=== PATIENT | male | born 1975 | race Caucasian/White ===

== ENCOUNTER 2019-06-20 14:57 | Emergency (ER) | payer MEDICARE, MEDICAID, SELFPAY ==
[2019-06-20 15:02] VITALS: BP 137/89; PULSE 80; RESP 16; TEMP 37.1; O2SAT 95
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
== END 2019-06-20 16:35 | disposition home or self-care (01) ==
LOC: ER 16:31
PROVIDERS: Emergency Provider Nurse Practitioner Family; PCP Internal Medicine
DX: H61.23 Impacted cerumen, bilateral (principal)
CPT/HCPCS: 69209; 99282

== ENCOUNTER 2019-11-29 12:55 | Emergency (ER) | payer MEDICARE, MEDICAID, SELFPAY ==
[2019-11-29 12:58] VITALS: BP 134/96; PULSE 69; RESP 16; TEMP 36.5; O2SAT 97
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
[2019-11-29] MEDS: Acetaminophen 500 MG TAB 1000 MG PO (13:49)
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
--- NOTE | 2019-11-29 14:54 | NUR.NOTE ---
Discharge instructions reviewed with pt and caregiver with verbal understanding. aware to f/u with pcp as needed. ambulated to exit with steady gait.
== END 2019-11-29 14:56 | disposition home or self-care (01) ==
PROVIDERS: Emergency Provider Physician Assistant; PCP Internal Medicine
DX: M25.512 Pain in left shoulder (principal); S40.012A Contusion of left shoulder, initial encounter; V43.53XA Car driver injured in collision with pick-up truck in traffic accident, initial encounter
CPT/HCPCS: 99283; 73000

== ENCOUNTER 2021-11-05 15:04 | Outpatient (REF) | payer MEDICARE, MEDICAID, SELFPAY ==
[2021-11-05 15:35] LABS: HCT 45.4 % (40.0-50.0); HGB 14.6 g/dL (13.5-17.5); MCH 29.5 pg (27.0-33.0); MCHC 32.2 % (32.0-36.0); MCV 91.7 fL (80-95); MPV 10.7 fL (8.0-11.0); Platelet Count 161 10^3/uL (130-400); RBC 4.95 10^6/uL (4.36-5.78); RDW 12.3 % (11.8-14.1); RDW-SD 41.4 fL; WBC 4.76 10^3/uL (4.4-10.8)
[2021-11-05 16:12] LABS: ALT 34 U/L (16-63); AST 18 U/L (15-37); Anion Gap 6.6 mmol/L (3-11); BUN 21 mg/dL (7-18); CO2 30.4 mmol/L (21.0-32.0); CREATININE 1.1 mg/dL (0.70-1.30); Calcium 8.8 mg/dL (8.5-10.1); Calculated LDL 105 mg/dL (<100); Chloride 106 mmol/L (98-107); Cholesterol 164 mg/dL (<200); Glucose 102 mg/dL (74-106); HDL Cholesterol 41 mg/dL (40-60); Potassium 4.6 mmol/L (3.5-5.1); Sodium 143 mmol/L (136-145); Triglyceride 93 mg/dL (<150)
== END 2021-11-05 15:05 | disposition home or self-care (01) ==
LOC: NCHCN 15:04
PROVIDERS: PCP Internal Medicine; Visit Provider Nurse Practitioner Family
DX: Z13.220 Encounter for screening for lipoid disorders (principal); Z00.00 Encounter for general adult medical examination without abnormal findings; Z51.81 Encounter for therapeutic drug level monitoring
CPT/HCPCS: 80048; 80061; 85027; 84450; 84460

== ENCOUNTER 2021-11-20 00:41 | Outpatient (CLI) | payer MEDICARE, MEDICAID, SELFPAY ==
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
== END 2021-11-20 01:01 ==
PROVIDERS: PCP Internal Medicine; Visit Provider Nurse Practitioner Family
DX: R93.89 Abnormal findings on diagnostic imaging of other specified body structures (principal); R10.31 Right lower quadrant pain; R59.0 Localized enlarged lymph nodes
CPT/HCPCS: 76857

== ENCOUNTER 2022-09-29 14:19 | Outpatient (CLI) | payer MEDICARE, MEDICAID, SELFPAY ==
--- OUTSIDE RECORDS SUMMARY | 2022-09-29 14:22 | XMS_ITS | Encounter Summary ---
:1975 Author Organization [facility] Address [address] [place] [address] Care Team Providers Name Role Phone Imani Jordan MD Primary Care Provider Encounter Details Date Type Department Care Team Description 09/07/2013 Hospital Encounter [facility] Anton Landaverde, Perioperative Services - DDS [address] [address] [place] [id number] Social History Tobacco Use Types Packs/Day Years Used Date Smoking Tobacco: Never Assessed Sex Assigned at Date Recorded Not on file documented as of this encounter Last Filed Vital Signs Vital Sign Reading Time Taken Comments Blood Pressure 128/77 09/07/2013 1415 EST Pulse - - Temperature 36.6 ??C (97.9 ??F) 09/07/2013 1415 EST Respiratory Rate 14 09/07/2013 1415 EST Oxygen Saturation 97% 09/07/2013 1415 EST Inhaled Oxygen Concentration - - Weight 79 kg (174 lb 2.6 oz) 09/05/2013 1523 EST Height 169.1 cm (5' 6.58) 09/05/2013 1523 EST Body Mass Index 27.63 09/05/2013 1523 EST documented in this encounter Discharge Instructions Discharge Instr - Anton Smyth DDS - 09/07/2013 13:19 EST DENTAL REHABILITATION POST-OP INSTRUCTIONS ACTIVITY - Quiet day today with limited physical activity. Balance and stability may be altered. - No restrictions on Day 2. ORAL HYGIENE - No brushing today. The teeth may be wiped with a gauze or washcloth for the first few days. - Brushing (2 times per day with fluoride toothpaste) may resume on Day 2. - Flossing is encouraged to begin on Day 3. DIET - Drink more fluids than usual today. - Soft foods that are easily chewed and swallowed are encouraged for today. After a day or two, no restrictions are necessary. - To reduce the risk of future cavities, healthy snack choices are critical. PAIN - Give acetaminophen on day one every 4-6 hours to manage mild discomfort. - Mild puffiness of the lips and cheeks may be noted. If tolerated, a cold compress may reduce swelling when applied periodically during the first 24 hours. - Apply Vaseline to dry lips as needed. NOTIFY YOUR DOCTOR IF YOU HAVE ANY OF THE FOLLOWING SYMPTOMS: - Fever greater than 100F (38C) - Uncontrolled bleeding - Persistent nausea or vomiting. - Pain unrelieved by pain medicine. POST-OP INSTRUCTIONS FOR EXTRACTIONS FOLLOWING PEDIATRIC DENTISTRY ORAL REHAB 1. No rinsing today. After 24 hours, salt water rinses may be used after meals using ?? tsp of salt to 8 oz. of water. 2. Take Tylenol every 4-6 hours for discomfort. 3. Some slight swelling may occur. A cold compress or ice pack may be held over the region of the extraction on intermittent periods today, if tolerated. 4. For today, a light diet with soft foods. No hot foods. 5. For today, do not use straws for drinking. 6. Bite on gauze or hold pressure over extraction site to stop any bleeding. 7. Please call your surgeon if you have any problems: [facility] [phone] ANTON LANDAVERDE DDS 09/07/13 13:19 documented in this encounter Medications at Time of Discharge Medication Sig Dispensed Refills Start Date End Date FLUoxetine (PROZAC) 20 mg Take 20 mg by mouth 0 tablet daily. LORazepam (ATIVAN) 1 mg Take 1 mg by mouth. 0 tablet Pre-procedure QUEtiapine (SEROQUEL) 100 Take 100 mg by mouth 0 mg tablet at bedtime. documented as of this encounter Discharge Disposition Disposition Code Departure Means Destination Home or Self Care documented in this encounter H&P Notes WILDLIFE FORENSIC GENETICIST, SCAN 2 - 09/12/2013 1256 EST Anton Landaverde DDS - 09/07/2013 1001 EST The preoperative history and physical which was performed within 30 days of this procedure has been reviewed and the clinically appropriate elements of the physical examination havebeen repeated. There are no changes to the documented history and physical or if so such changes aredocumented below ANTON LANDAVERDE DDS 09/07/2013 10:02 documented in this encounter Nursing Notes WILDLIFE FORENSIC GENETICIST, SCAN 2 - 09/12/2013 1256 EST documented in this encounter OR Notes OR PreOp - WILDLIFE FORENSIC GENETICIST, SCAN 2 - 09/12/2013 1256 EST OR Surgeon - Anton Landaverde DDS - 09/07/2013 2124 EST OPERATIVE REPORT SERVICE DATE: 09/07/2013 SURGEON: Anton Landaverde DDS PREOPERATIVE DIAGNOSIS: POSTOPERATIVE DIAGNOSIS: PROCEDURE: Complete dental rehabilitation. ANESTHESIA: Oxygen and sevoflurane. NARRATIVE: The patient was induced by mask with oxygen and sevoflurane and continued on that for theduration of the procedure. The following treatment is as follows: Three periapical x-rays were taken, a dental cleaning was completed and a fluoride treatment was completed. The following teeth and their surfaces treated are: Tooth #3 had a 1-surface resin mormonism, same with tooth #6 and same withtooth #14 and same with tooth #19. Tooth #15 received a 3-surface resin mormonism. Tooth #26 received a 3-surface resin mormonism and tooth #27 received a 3-surface resin mormonism. Teeth #2, 14 18, 30 and 31 were surgically extracted and the patient was given 3 x 4-0 chromic gut sutures. The patient was returned to the recovery betancourt in satisfactory condition with all packs removed and all bleeding controlled. Unless otherwise noted, there were no complications, no blood loss, no cultures obtained, no specimens removed, and no drains retained. Anton Landaverde DDS 04 22 PM / Anton Landaverde DDS cn Confirmation: [id number] Dictation ID: [id number] Anesthesia Procedure Notes - WILDLIFE FORENSIC GENETICIST, SCAN 2 - 09/07/2013 1322 EST OR PreOp - WILDLIFE FORENSIC GENETICIST, SCAN 2 - 09/07/2013 1317 EST Anesthesia Preprocedure Evaluation - WILDLIFE FORENSIC GENETICIST, SCAN 2 - 09/07/2013 1238 EST Anesthesia Preprocedure Evaluation - WILDLIFE FORENSIC GENETICIST, SCAN 2 - 09/07/2013 1012 EST documented in this encounter Miscellaneous Notes Coding Query - Anton Landaverde DDS - 09/13/2013 1325 EST In coding this procedure, I noticed that your procedure note said that you performed a 1 surface mormonism on tooth #14 and a little farther down the note, the indication is that you extracted tooth #14. Would you please clarify: What teeth #'s were extracted ____#13 What teeth #'s were restored #14 Jody David HIM Coding [phone] Anesthesia Post-Eval - Geovany Yañez - 09/07/2013 1432 EST Post Anesthesia Evaluation Note Date of Service: 09/07/2013 Patrick Guthrie, a 37 y.o. year old male has received General Anesthesia today. He has been evaluated,assessed and discharged from anesthesia care with stable cardiorespiratory function and alert mentalstatus. The last set of recorded vital signs and pain rating were reviewed: Temp: 36.6 ??C (97.9 ??F) (09/07/131414), Heart Rate: 92 BPM (09/07/131414), BP: 128/77 mmHg (09/07/131414), Resp: 14 (09/07/131414), SpO2: 97 % (09/07/131414),Numeric Pain Level (Scale 1-10): 0 Total: 0 Patrick Guthrie participated in this evaluation unless otherwise noted. His pain, nausea and vomiting have been managed and his body temperature and fluid balance have been restored. Additional monitoring and assessment needs have been addressed. If present, any postoperative events are documented below. GEOVANY YAÑEZ MD 09/07/2013 14:32 Brief Op Note - Anton Landaverde DDS - 09/07/2013 1318 EST Dental Rehabilitation Post op Note: Patrick Guthrie underwent an oral rehabilitation under general anesthesia for dental caries and acute situational anxiety. Underlying medical disorders include: developmental delays. 7 teeth were restored, and 5 teeth were extracted. Rectal Tylenol was administered for pain. Bleeding was minimal and controlled. Patient was extubated and sent to recovery in good condition. There were no complications, no packs, and no drains. Post-op instructions were reviewed with the parent / caregiver. Plan to discharge to home per anesthesia when PACU criteria are met. ANTON LANDAVERDE DDS 13:18 09/07/13 documented in this encounter Plan of Treatment Not on filedocumented as of this encounter Procedures Procedure Name Priority Date/Time Associated Diagnosis Comme nts ECG REPORT - 09/12/2013 12:56 SCANNED EST ORDERS - SCANNED 09/12/2013 12:56 EST GLUCOSE, SERUM Routine 09/07/2013 10:12 Results f or this EST procedure are i n the results section. LIPID PROFILE Routine 09/07/2013 10:12 Results fo r this (INCLUDES EST procedure are i n CHOLESTEROL, the results TRIGLYCERIDES, HDL, section. LDL) documented in this encounter Results ECG REPORT - SCANNED (09/12/2013 12:56 EST) Specimen (Source) Anatomical Collection Method Collection Time Re ceived Time Location / / Volume Laterality 09/12/2013 12:56 EST Narrative This result has an attachment that is no t available. Scan 2 Soldering Technician PROCEDURE/MINOR SURGICAL ORD ERABLES ORDERS - SCANNED (09/12/2013 12:56 EST) Specimen (Source) Anatomical Collection Method Collection Time Re ceived Time Location / / Volume Laterality 09/12/2013 12:56 EST Narrative This result has an attachment that is no t available. Scan 2 Soldering Technician ADMISSION ORDERABLES LIPID PROFILE (INCLUDES CHOLESTEROL, TRIGLYCERIDES, HDL, LDL) (09/07/2013 10:12 EST) P athologist Signature Cholesterol 287 mg/dl [facility] Comment: Desirable:<200 Borderline High:200-239 High:>zw=819 Triglycerides 249 mg/dl [facility] Comment: Normal:<150 Borderline High:150-199 High:200-499 Very High:>dx=285 HDL 36 mg/dl [facility] Comment: Low:<40 Normal:40-60 Desirable: >60 LDL, Calculated 201 mg/dl [facility] Comment: Optimal:<100 Near Optimal:100-129 Borderline High:130-159 High:160-189 Very High:>ox=580 Chol/HDL Ratio 8.0 [facility] Fasting? Unknown [facility] Non HDL Cholesterol 251 mg/dl [facility] Comment: Desirable:<130 Borderline:130-159 High: 160-189 Very High: >ym=810 Specimen Anatomical Collection Method Collection Time Receive d Time (Source) Location / / Volume Laterality 09/07/2013 10:12 09/07/2013 EST 13:41 EST Anton Patrick Main DDS CHEMISTRY & BLOOD GAS ORDERA BLES Performing Organization Address City/State/ZIP Code Phon e Number [facility] [address] [place] [address] SERVICES [facility] [address] [place] [address] (ABNORMAL) GLUCOSE, SERUM (09/07/2013 10:12 EST) P athologist Signature Glucose, Serum 105 (H) 70 - 100 [facility] mg/dl [facility] Specimen Anatomical Collection Method Collection Time Receive d Time (Source) Location / / Volume Laterality Blood specimen 09/07/2013 10:12 3 (specimen) EST 13:41 EST Anton Landaverde DDS CHEMISTRY & BLOOD GAS ORDERA BLES Performing Organization Address City/State/ZIP Code Phon e Number [facility] [address] [place] [address] SERVICES [facility] [address] [place] [address] documented in this encounter Visit Diagnoses Not on filedocumented in this encounter Administered Medications Inactive Administered Medications - up to 3 most recent administrations Medication Order MAR Action Action Date Dose Rate Site lactated ringers (LR) Rate Documented 09/07/2013 13:21 EST 25 mL/hr infusion at 25 mL/hr, intravenous, CONTINUOUS, Starting on Tue09/07/13 at 0845, Until Tue09/07/13 at 1647, Routine, Pre Op Day of Surgery ondansetron (PF) (ZOFRAN) injection 2 mg Given 09/07/2013 13:45 EST 2 mg 2 mg, intravenous, PRN, 1 dose, Starting on Tue09/07/13 at 1304, Until Tue09/07/13 at 1345, Nausea, Vomiting, Routine, Recovery (only) documented in this encounter Historical Medications This list may reflect changes made after this encounter. Medication Sig Dispensed Refills Start Date End Date LORazepam (ATIVAN) 1 mg Take 1 mg by mouth. 0 tablet Pre-procedure FLUoxetine (PROZAC) 20 mg Take 20 mg by mouth 0 tablet daily. QUEtiapine (SEROQUEL) 100 Take 100 mg by mouth 0 mg tablet at bedtime. added in this encounter Active and Recently Administered Medications Times are shown in EST. Continuous Medication Order 09/05/2013 09/06/2013 09/07/2013 lactated ringers (LR) infusion (CANCELED) 0845 (Due)1321 (Rate Documented - Provider: Sharon Rush, RN) at 25 mL/hr, intravenous, CONTINUOUS, St arting Tue09/07/13 at 0845, Until Tue09/07/13 at 1647, Routine PRN Medication Order 09/05/2013 09/06/2013 09/07/2013 ondansetron (PF) (ZOFRAN) injection 2 mg (COMPLETED) 1345 (Given - Provider: Sharon Rush, EDENILSON) 2 mg, intravenous, PRN, 1 dose, Starting Tue09/07/13 at 1304, Until Discontinued, Nausea, Vomiting, Routine documented in this encounter Orders Medications Ordered That Might Not Have Count Last Ord ered Date First Ordered Date Been Administered atropine 0.1 mg/mL syringe 0.4 mg 1 09/07/2013 diphenhydrAMINE (BENADRYL) injection 6.25 1 2012 mg fentaNYL citrate (PF) 50 mcg/mL injection 1 2012 25-100 mcg nalOXone (NARCAN) injection 0.2 mg 1 09/07/2013 Transfer Count Last Ordered Date First Ordered Date NOTIFY PPS PACU PATIENT DISCHARGE 1 09/07/2013 documented in this encounter Care Teams Firefighter Marine Relationship Specialty Start Date End Date Imani Jordan MD PCP - General 04/24/13 [address] [place] [address] documented as of this encounter
--- OUTSIDE RECORDS SUMMARY | 2022-09-29 14:22 | XMS_ITS | Clinical Summary ---
:1975 Author Organization [facility] Address [address] [place] [address] Care Team Providers Name Role Phone Imani Jordan MD Primary Care Provider Allergies No known active allergies Medications Medication Sig Dispensed Refills Start Date End Date Status QUEtiapine (SEROQUEL) Take 100 mg by 0 Active 100 mg tablet mouth at bedtime. FLUoxetine (PROZAC) 20 Take 20 mg by 0 Active mg tablet mouth daily. LORazepam (ATIVAN) 1 mg Take 1 mg by 0 Active tablet mouth. Pre-procedure Immunizations Name Administration Dates Next Due Tdap (BOOSTRIX) Vaccine =>7YO IM 09/07/2013 Social History Tobacco Use Types Packs/Day Years Used Date Smoking Tobacco: Never Assessed Sex Assigned at Date Recorded Not on file Last Filed Vital Signs Vital Sign Reading [...] Body Mass Index 27.63 09/05/2013 1523 EST Plan of Treatment Health Maintenance Due Date Last Done Comments Hepatitis C Screen 1975 COVID-19 Vaccine (#1) 06[birth year]06/1974 Care Teams Public Policy Manager Relationship Specialty Start Date End Date Imani Jordan MD PCP - General 04/24/13 [address] [place] [id number] (work)
[2022-09-29 16:19] LABS: Abs Immature Grans 0.02 10^3/uL (0.0-0.06); Absolute Basophil Count 0.04 10^3/uL (0.0-0.2); Absolute Eosinophil Count 0.08 10^3/uL (0.0-0.7); Absolute Lymphocyte Count 1.96 10^3/uL (1.2-3.4); Absolute Monocyte Count 0.61 10^3/uL (0.1-0.8); Absolute Neutrophil Count 3.59 10^3/uL (1.2-6.7); Basophils % 0.6; Eosinophils % 1.3; HCT 41.7 % (40.0-50.0); HGB 13.9 g/dL (13.5-17.5); Immature Grans % 0.3; Lymphocytes % 31.1; MCH 29.8 pg (27.0-33.0); MCHC 33.3 % (32.0-36.0); MCV 89 fL (80-95); MPV 9.9 fL (8.0-11.0); Monocytes % 9.7; Platelet Count 172 10^3/uL (130-400); RBC 4.67 10^6/uL (4.36-5.78); RDW 12.4 % (11.8-14.1); RDW-SD 40.5 fL
[2022-09-29 16:54] LABS: ALT 40 U/L (16-63); AST 28 U/L (15-37); Albumin 3.8 g/dL (3.4-5.0); Alkaline Phosphatase 82 U/L (46-116); Anion Gap 4.3 mmol/L (3-11); BUN 21 mg/dL (7-18); Bilirubin, Total 0.6 mg/dL (0.2-1.0); CO2 29.7 mmol/L (21.0-32.0); CREATININE 1.4 mg/dL (0.70-1.30); Calcium 9.5 mg/dL (8.5-10.1); Chloride 103 mmol/L (98-107); Glucose 83 mg/dL (74-106); Potassium 3.7 mmol/L (3.5-5.1); Sodium 137 mmol/L (136-145)
== END 2022-09-29 14:20 | disposition home or self-care (01) ==
PROVIDERS: PCP Internal Medicine; Visit Provider Nurse Practitioner Family
DX: R30.0 Dysuria (principal); R31.9 Hematuria, unspecified; R10.817 Generalized abdominal tenderness
CPT/HCPCS: 36415; 80053; 85025

== ENCOUNTER 2022-09-29 17:14 | Outpatient (REF) | payer MEDICARE, MEDICAID, SELFPAY ==
[2022-09-29 21:07] LABS: Bilirubin Negative (Negative); Blood Trace-lysed (Negative); Clarity Clear (Clear); Glucose Negative (Negative); Ketones Negative (Negative); Leukocyte Esterase Negative (Negative); Nitrite Negative (Negative); Specific Gravity 1.015 (1.005-1.025); Urobilinogen 0.2 EU/dL (Up TO 0.2); pH 5.5 (5-8)
[2022-09-29 21:21] LABS: Bacteria Rare HPF (Negative); C & S Indicated? No; Crystals Negative HPF (Negative); Epithelial Cells Rare HPF (Negative); Mucus Negative (Negative); RBC 0-2 HPF (0-2); WBC Negative HPF (0-5)
== END 2022-09-29 17:15 | disposition home or self-care (01) ==
LOC: LBN 17:14
PROVIDERS: PCP Internal Medicine; Visit Provider Nurse Practitioner Family
DX: R39.89 Other symptoms and signs involving the genitourinary system (principal); R31.9 Hematuria, unspecified; R30.0 Dysuria
CPT/HCPCS: 81003; 81015

== ENCOUNTER → 2022-10-04 02:52 | Outpatient (CLI) | payer MEDICARE, MEDICAID, SELFPAY ==
--- NOTE | 2022-10-04 07:30 | DI.US_ITS ---
Exam(s) US RENAL EXAM: US RENAL CLINICAL HISTORY: evaluate pathology,hematuria,r31.9. TECHNIQUE: Michaels scale, color and spectral Doppler were used. COMPARISON: CT ABD PELVIS WO CONTRAST from 08/12/2017 FINDINGS: Renal size in cm: Right: 10 left: 10.6 Echogenicity: Normal Hydronephrosis: Symmetric mild bilateral. Cyst or mass: No Nephrolithiasis: Question of a 6 millimeter stone lower pole left kidney. Bladder:Diffuse wall thickening, 6-7 millimeters in thickness. No bladder calculi or masses are seen .. Both ureteral jets were visualized. Prevoid vol:206 Postvoid vol:Patient unable to void. Prostate volume 42 cc. IMPRESSION: Question a 6 millimeter stone at the lower pole of the left kidney. Diffuse bladder wall thickening. Mildly enlarged prostate. Mild bilateral hydronephrosis. DATA REPOSITORY:
== END ==
PROVIDERS: PCP Internal Medicine; Visit Provider Nurse Practitioner Family
DX: R31.9 Hematuria, unspecified (principal); N20.0 Calculus of kidney; N32.89 Other specified disorders of bladder; N40.1 Benign prostatic hyperplasia with lower urinary tract symptoms; N13.30 Unspecified hydronephrosis
CPT/HCPCS: 76770

== ENCOUNTER → 2022-12-20 09:09 | Outpatient (BNVA) | payer MEDICARE, MEDICAID, SELFPAY | PROVIDERS: PCP Internal Medicine; Referring Provider Internal Medicine; Visit Provider Nurse Practitioner Gerontology | DX: N20.0 Calculus of kidney (principal); N13.30 Unspecified hydronephrosis; N40.1 Benign prostatic hyperplasia with lower urinary tract symptoms; R33.9 Retention of urine, unspecified | CPT/HCPCS: 51798; 99204 ==

== ENCOUNTER 2022-12-31 01:44 | Outpatient (CLI) | payer MEDICARE, MEDICAID, SELFPAY ==
[2022-12-31 21:15] LABS: ALT 37 U/L (16-63); AST 23 U/L (15-37); Albumin 4.4 g/dL (3.4-5.0); Alkaline Phosphatase 100 U/L (46-116); Anion Gap 11.9 mmol/L (3-11); BUN 23 mg/dL (7-18); Bilirubin, Total 0.5 mg/dL (0.2-1.0); CO2 25.1 mmol/L (21.0-32.0); CREATININE 1.2 mg/dL (0.70-1.30); Calcium 9.2 mg/dL (8.5-10.1); Calculated LDL 147 mg/dL (<100); Chloride 103 mmol/L (98-107); Cholesterol 222 mg/dL (<200); Estimated GFR 74.13 (mL/min/1.73m2); Glucose 94 mg/dL (74-106); HDL Cholesterol 57 mg/dL (40-60); Potassium 4.3 mmol/L (3.5-5.1); Sodium 140 mmol/L (136-145); Total Protein 7.4 g/dL (6.4-8.2); Triglyceride 94 mg/dL (<150)
[2023-01-03 09:25] LABS: PSA, Screening 0.4 ng/mL (<=2.5)
== END 2022-12-31 01:45 | disposition home or self-care (01) ==
LOC: LBO 01:45
PROVIDERS: Nurse Practitioner Family; PCP Internal Medicine; Visit Provider Nurse Practitioner Gerontology
DX: N40.1 Benign prostatic hyperplasia with lower urinary tract symptoms (principal); E78.00 Pure hypercholesterolemia, unspecified; R73.09 Other abnormal glucose; Z79.899 Other long term (current) drug therapy; Z12.5 Encounter for screening for malignant neoplasm of prostate
CPT/HCPCS: 36415; 80053; 80061; 84153; 83036

== ENCOUNTER → 2023-03-23 11:22 | Outpatient (BNVA) | payer MEDICARE, MEDICAID, SELFPAY | PROVIDERS: PCP Internal Medicine; Referring Provider Internal Medicine; Visit Provider Nurse Practitioner Gerontology | DX: N40.1 Benign prostatic hyperplasia with lower urinary tract symptoms (principal); N13.30 Unspecified hydronephrosis; R39.89 Other symptoms and signs involving the genitourinary system | CPT/HCPCS: 51798; 99214 ==

== ENCOUNTER 2023-06-03 00:15 | Outpatient (CLI) | payer MEDICARE, SELFPAY ==
--- NOTE | 2023-06-03 08:15 | DI.US_ITS ---
Exam(s) US RENAL EXAM: US RENAL CLINICAL HISTORY: monitoring b/l hydro and renal calculi, KIDNEY STONE, N13.30, N20.0. TECHNIQUE: Michaels scale, color and spectral Doppler were used. COMPARISON: CT ABD PELVIS WO CONTRAST from 08/12/2017 US US RENAL from 10/04/2022 FINDINGS: Renal size in cm: Right: 10.8 x 4.5 x 5.2 left: 10.4 x 4.1 x 5.9 Echogenicity: Normal Hydronephrosis: [id number] hydronephrosis, more prominent when compared with the previous exam. Cyst or mass: No Nephrolithiasis: 6 millimeter echogenic focus mid left kidney. 3 millimeter echogenic focus lower po le right kidney likely nonobstructing stones. Bladder:Normal Prevoid vol:577 Postvoid vol: 36 Prostate volume 44 cc. IMPRESSION: Hhyb-ht-[id number] bilateral hydronephrosis. Small bilateral nonobstructing renal calculi. DATA REPOSITORY:
== END 2023-06-03 00:35 ==
LOC: DI 00:15
PROVIDERS: PCP Internal Medicine; Visit Provider Nurse Practitioner Gerontology
DX: N13.30 Unspecified hydronephrosis (principal); N20.0 Calculus of kidney
CPT/HCPCS: 76770

== ENCOUNTER → 2023-07-06 02:15 | Outpatient (CLI) | payer MEDICARE, MEDICAID, SELFPAY ==
--- NOTE | 2023-07-06 08:00 | DI.NM_ITS ---
Exam(s) NM DTPA RENOGRAM W LASIX CLINICAL HISTORY: b/l hydroNEPHROSIS INCREASING,N13.30. COMPARISON: No exams were available for comparison EXAMINATION: Dose: 11 mCi Tc-99m DTPA Images: Immediately for 1 minute followed by dynamic for 45 minutes. Twentymg Lasix was administered after peak uptake in the renal cortex at approximately 12 min. FINDINGS: Time to peak: Right: 5 min (< 5 min normal) Left: 8 min (< 5 min normal) Curve Appearance: Right: T1/2 (Lasix to half-Lasix) 13.1 min Left: T1/2 (Lasix to half-Lasix) 12.5 min The time activity curve reveals no delay in the washout of either collecting system. (< 10 min normal, 10-15 min Low grade obstruction, 15-20 min moderate,. 20 min high grade) Split renal function: Right: 52 % Left: 48 % IMPRESSION: 1. Dilated, non-obstructed collecting system.
[2023-07-06] MEDS: Furosemide 20 MG/2 ML VIAL IJ (13:55)
== END ==
PROVIDERS: PCP Internal Medicine; Visit Provider Nurse Practitioner Gerontology
DX: N13.30 Unspecified hydronephrosis (principal)
CPT/HCPCS: 78708; J1941

== ENCOUNTER → 2023-09-21 11:29 | Outpatient (BNVA) | payer MEDICARE, MEDICAID, SELFPAY | PROVIDERS: PCP Internal Medicine; Visit Provider Nurse Practitioner Gerontology | DX: N13.30 Unspecified hydronephrosis (principal); N20.0 Calculus of kidney | CPT/HCPCS: 51798; 99213 ==

== ENCOUNTER 2024-03-13 05:17 | Outpatient (CLI) | payer MEDICARE, MEDICAID, SELFPAY ==
[2024-03-13 12:14] LABS: HCT 45.3 % (40.0-50.0); HGB 14.6 g/dL (13.5-17.5); MCH 29.7 pg (27.0-33.0); MCHC 32.2 % (32.0-36.0); MCV 92 fL (80-95); MPV 10.4 fL (8.0-11.0); Platelet Count 184 10^3/uL (130-400); RBC 4.91 10^6/uL (4.36-5.78); RDW-SD 44.2 fL; WBC 5.49 10^3/uL (4.4-10.8)
[2024-03-13 12:35] LABS: ALT 35 U/L (16-63); AST 22 U/L (15-37); Alkaline Phosphatase 99 U/L (46-116); Anion Gap 8.6 mmol/L (3-11); BUN 22 mg/dL (7-18); Bilirubin, Total 0.4 mg/dL (0.2-1.0); CO2 28.4 mmol/L (21.0-32.0); CREATININE 1.3 mg/dL (0.70-1.30); Calcium 9.2 mg/dL (8.5-10.1); Calculated LDL 132 mg/dL (<100); Chloride 108 mmol/L (98-107); Cholesterol 224 mg/dL (<200); Estimated GFR 66.93 (mL/min/1.73m2); Glucose 103 mg/dL (74-106); HDL Cholesterol 53 mg/dL (40-60); Potassium 4.4 mmol/L (3.5-5.1); Sodium 145 mmol/L (136-145); Total Protein 7.4 g/dL (6.4-8.2); Triglyceride 196 mg/dL (<150)
== END 2024-03-13 05:18 | disposition home or self-care (01) ==
LOC: LOS 05:17
PROVIDERS: PCP Internal Medicine; Visit Provider Nurse Practitioner Family
DX: Z00.00 Encounter for general adult medical examination without abnormal findings (principal)
CPT/HCPCS: 36415; 80053; 80061; 85027

== ENCOUNTER → 2024-04-03 09:31 | Outpatient (BNVA) | payer MEDICARE, MEDICAID, SELFPAY | PROVIDERS: PCP Internal Medicine; Visit Provider Nurse Practitioner Gerontology | DX: N20.0 Calculus of kidney (principal); N13.30 Unspecified hydronephrosis | CPT/HCPCS: 51798; 99213 ==

== ENCOUNTER 2024-09-14 00:28 | Outpatient (CLI) | payer MEDICARE, MEDICAID, SELFPAY ==
--- OUTSIDE RECORDS SUMMARY | 2024-09-14 00:32 | XMS_ITS | Encounter Summary ---
Author Organization [facility] Address [address] [place] [address] Care Team Providers Care Supervisor Rework Name Role Phone Unavailable Primary Care Provider Unavailabl e Encounter Details Date Type Department Care Team (Latest Contact Info) Description 09/07/2013 7:52 EST - 09/07/2013 14:35 EST Hospital Encounter [facility] Perioperative Services - [address] [id number] Anton Landaverde DDS [address] [place] [address] Discharge Disposition: Home or Self Care Social History Tobacco Use Types Packs/Day Years Used Date Smoking Tobacco: Never Assessed Sex and Gender Information Value Date Recorded Sex Assigned at Not on file Legal Sex Male 17:32 EST Gender Identity Not on file Sexual Orientation Not on file documented as of this [...] EST documented in this encounter Discharge Instructions * Discharge Instr - Activity* Anton Landaverde DDS - 09/07/2013 13:19 EST DENTAL REHABILITATION [...] used after meals using ?? tsp of saltto 8 oz. of water. 2. Take Tylenol [...] your surgeon if you have any problems: [facility] [phone] ANTON LANDAVERDE DDS 09/07/13 13:19 documented in this encounter Medications at Time of Discharge FLUoxetine (PROZAC) 20 mg tablet Take 20 mg by mouth daily. LORazepam (ATIVAN) 1 mg tablet Take 1 mg by mouth. Pre-procedur e QUEtiapine (SEROQUEL) 100 mg tablet Take 100 mg by mouth at bedtime. documented as of this encounter Discharge Disposition Disposition Code Departure Means Destination Home or Self Care documented in this encounter H&P Notes * VALVE MAKER, SCAN 2 - 09/12/2013 1256 EST * Anton Landaverde DDS - 09/07/2013 1001 EST The preoperative history and physical which was performed within 30 days of this procedure has been reviewed and the clinically appropriate elements of the physical examination have been repeated. There are no changes to the documented history and physical or if so such changes are documented below ANTON LANDAVERDE DDS 09/07/2013 10:02 documented in this encounter Nursing Notes * VALVE MAKER, SCAN 2 - 09/12/2013 1256 EST documented in this encounter OR Notes * OR PreOp - VALVE MAKER, SCAN 2 - 09/12/2013 1256 EST * OR Surgeon - Anton Landaverde DDS - 09/07/2013 2124 EST OPERATIVE REPORT SERVICE DATE: 09/07/2013 SURGEON: Anton Landaverde DDS PREOPERATIVE DIAGNOSIS: POSTOPERATIVE DIAGNOSIS: PROCEDURE: Complete dental rehabilitation. ANESTHESIA: Oxygen and sevoflurane. NARRATIVE: The patient was induced by mask with oxygen and sevoflurane and continued on that for the duration of the procedure. The following treatment is as follows: Three periapical x-rays were taken, a dental cleaning was completed and a fluoride treatment was completed. The following teeth and their surfaces treated are: Tooth #3 had a 1-surface resin scientologist, same with tooth #6 and same with tooth #14 and same with tooth #19. Tooth #15 received a 3-surface resin scientologist. Tooth #26 received a 3-surface resin scientologist and tooth #27 received a 3-surface resin scientologist. Teeth #2, 14 18, 30 and 31 were surgically extracted and the patient was given 3 x 4-0 chromic gut sutures.The patient was returned to the recovery betancourt in satisfactory condition with all packs removed and all bleeding controlled. Unless otherwise noted, there were no complications, no blood loss, no cultures obtained, no specimens removed, and no drains retained. Anton Landaverde DDS 04 22 PM / Anton Landaverde DDS cn Confirmation: [id number] Dictation ID: [id number] * Anesthesia Procedure Notes - VALVE MAKER, SCAN 2 - 09/07/2013 1322 EST * OR PreOp - VALVE MAKER, SCAN 2 - 09/07/2013 1317 EST * Anesthesia Preprocedure Evaluation - VALVE MAKER, SCAN 2 - 09/07/2013 1238 EST * Anesthesia Preprocedure Evaluation - VALVE MAKER, SCAN 2 - 09/07/2013 1012 EST documented in this encounter Miscellaneous Notes * Coding Query - Anton Landaverde DDS - 09/13/2013 1325 EST In coding this procedure, I noticed that your procedure note said that you performed a 1 surface scientologist on tooth #14 and a little farther down the note, the indication is that you extracted tooth #14. Would you please clarify: What teeth #'s were extracted ____#13 What teeth #'s were restored #14 Frankie, Jody Velasquez HIM Coding [phone] * Anesthesia Post-Eval - Geovany Yañez - 09/07/2013 1432 EST Post Anesthesia Evaluation Note Date of Service: 09/07/2013 Patrick Guthrie, a 37 y.o. year old male has received General Anesthesia today. He has been evaluated, assessed and discharged from anesthesia care with stable cardiorespiratory function and alert mental status. The last set of recorded vital signs and pain rating were reviewed: Temp: 36.6 ??C (97.9 ??F) (09/07/13 141), Heart Rate: 92 BPM (09/07/131414), BP: 128/77 mmHg (09/07/13 141), Resp: 14 (09/07/131414), SpO2: 97 % (09/07/131414),Numeric Pain Level (Scale 1-10): 0 Total: 0 Patrick Guthrie participated in this evaluation unless otherwise noted. His pain, nausea and vomitinghave been managed and his body temperature and fluid balance have been restored. Additional monitoring and assessment needs have been addressed. If present, any postoperative events are documented below. GEOVANY YAÑEZ MD 09/07/2013 14:32 * Brief Op Note - Anton Landaverde DDS - 09/07/2013 1318 EST Dental Rehabilitation Post op Note: Patrick Guthrie underwent an oral rehabilitation under general anesthesia for dental caries and acutesituational anxiety. Underlying medical disorders include: developmental delays. 7 teeth were restored, and 5 teeth were extracted. Rectal Tylenol was administered for pain. Bleeding was minimal and c ontrolled. Patient was extubated and sent to recovery in good condition. There were no complications, no packs, and no drains. Post-op instructions were reviewed with the parent / caregiver. Plan to discharge to home per anesthesia when PACU criteria are met. ANTON LANDAVERDE DDS 13:18 09/07/13 documented in this encounter Plan of Treatment Not on file documented as of this encounter Procedures Procedure Name Priority Date/Time Associated Diagnosis Comments ECG REPORT - SCANNED 09/12/2013 12:56 EST ORDERS - SCANNED 09/12/2013 12:5 6 EST GLUCOSE, SERUM Routine 09/07/2013 10:12 EST LIPID PROFILE (INCLUDES CHOLESTEROL, TRIGLYCERIDES, HDL, LDL) Routine 09/07/2013 10:12 EST documented in this encounter Results * ECG REPORT - SCANNED (09/12/2013 12:56 EST) 09/12/2013 12:5 6 EST us Scan 2 Nurse Esthetician PROCEDURE/MINOR SURGICAL OR DERABLES Final Result * ORDERS - SCANNED (09/12/2013 12:56 EST) 09/12/2013 12:5 6 EST us Scan 2 Nurse Esthetician ADMISSION ORDERABLES Final Result * LIPID PROFILE (INCLUDES CHOLESTEROL, TRIGLYCERIDES, HDL, LDL) (09/07/2013 10:12 EST) Cholesterol 287 mg/dl [facility] Comment: Desirable:<200 Borderline High:200-239 High:>yv=734 Triglycerides 249 mg/dl [facility] Comment: Normal:<150 Borderline High:150-199 High:200-499 Very High:>pn=502 HDL 36 mg/dl [facility] Comment: Low:<40 Normal:40-60 Desirable: >60 LDL, Calculated 201 mg/dl [facility] Comment: Optimal:<100 Near Optimal:100-129 Borderline High:130-159 High:160-189 Very High:>ph=869 Chol/HDL Ratio 8.0 [facility] Fasting? Unknown [facility] Non HDL Cholesterol 251 mg/dl [facility] Comment: Desirable:<130 Borderline:130-159 High: 160-189 Very High: >vq=906 09/07/2013 10:1 2 EST 09/07/2013 13:41 EST Anton Landaverde S CHEMISTRY & BLOOD GAS ORDER IRMA Final Result Performing Organization Address [facility] de Phone Number [facility] [address] [place] [address] * (ABNORMAL) GLUCOSE, SERUM (09/07/2013 10:12 EST) Glucose, Serum 105(H) 70 - 100 mg/dl [facility] Blood specimen (specimen) 09/07/2013 10:12 EST 09/07/2013 13:41 EST [facility] B[facility] IRMA Final Result Performing Organization Address [facility] Phone Number [facility] [address] [place] [address] documented in this encounter Visit Diagnoses Not on filedocumented in this encounter Administered Medications Inactive Administered Medications - up to 3 most recent administrations Medication Order MAR Action Action Date Dose Rate Site lactated ringers (LR) infusion at 25 mL/hr, intravenous, CONTINUOUS, Starting on Tue09/07/13 at 0845, Until Tue09/07/13 at 1647, Routine, Pre Op Day of Surgery Rate Documented 09/07/2013 13:21 EST 25 mL/hr ondansetron (PF) (ZOFRAN) injection 2 mg 2 mg, intravenous, PRN, 1 dose, Starting on Tue09/07/13 at 1304, Until Tue09/07/13 at 1345, Nausea, Vomiting, Routine, Recovery (only) Given 09/07/2013 13:45 EST 2 mg documented in this encounter Historical Medications * This list may reflect changes made after this encounter. LORazepam (ATIVAN) 1 mg tablet Take 1 mg by mouth. Pre-procedur e FLUoxetine (PROZAC) 20 mg tablet Take 20 mg by mouth daily. QUEtiapine (SEROQUEL) 100 mg tablet Take 100 mg by mouth at bedtime. added in this encounter Active and Recently Administered Medications Times are shown in EST. Continuous Medication Order 09/05/2013 09/06/2013 09/07/2013 lactated ringers (LR) infusion (CANCELED) at 25 mL/hr, intravenous, CONTINUOUS, Starting on Tue09/07/13 at 0845, Until Tue09/07/13 at 1647, Routine, Pre Op Day of Surgery 0845 (Due)1321 (Rate Documented - Provider: Sharon Rush RN) PRN Medication Order 09/05/2013 09/06/2013 09/07/2013 ondansetron (PF) (ZOFRAN) injection 2 mg (COMPLETED) 2 mg, intravenous, PRN, 1 dose, Starting on Tue09/07/13 at 1304, Until Tue09/07/13 at 1345, Nausea, Vomiting, Routine, Recovery (only) 1345 (Given - Provid er: Sharon Rush RN) documented in this encounter Orders Medications Ordered That Justen ht Not Have Been Administered Count Last Ordered Date First Ordered Date atropine 0.1 mg/mL syringe 0.4 mg 1 013 diphenhydrAMINE (BENADRYL) i njection 6.25 mg 1 09/07/2013 fentaNYL citrate (PF) 50 mcg /mL injection 25-100 mcg 1 09/07/2013 nalOXone (NARCAN) injection 0.2 mg 1 2012 Transfer Count Last Ordered Date First Orde red Date NOTIFY PPS PACU PATIENT DISCHARGE 1 013 documented in this encounter
--- OUTSIDE RECORDS SUMMARY | 2024-09-14 00:32 | XMS_ITS | Encounter Summary ---
Author Organization [facility] Address [address] [place] [address] Care Team Providers Care Laboratory Miller Name Role Phone Unavailable Primary Care Provider Unavailabl e Encounter Details Date Type Department Care Team (Late st Contact Info) Description 01/01/2023 Lab Requisition [facility] Pathology & Laboratory Medicine - [facility] [address], [place] [id number] Outr Resulting Lab, Provider Social History Tobacco Use Types Packs/Day Years Used Date Smoking Tobacco: Never Assessed Sex and Gender Information Value Date Recorded Sex Assigned at Not on file Legal Sex Male 17:32 EST Gender Identity Not on file Sexual Orientation Not on file documented as of this encounter Plan of Treatment Not on file documented as of this encounter Procedures Procedure Name Priority Date/Time Associated Diagnosis Comments PSA TOTAL, DIAGNOSTIC Routine 12/31/2022 14:51 EST documented in this encounter Results * PSA TOTAL, DIAGNOSTIC (12/31/2022 14:51 EST) PSA 0.4 <=2.5 ng/mL 01/03/2023 9:21 EST [facility] Blood VENOUS BLOOD / Unknown 12/31/2022 14:51 EST 01/01/2023 22:00 EST Narrative [facility] - 01/03/2023 9:21 EST NOTE: Serum PSA concentration should not be interpreted as absolute evidence for the presence or absence of malignant disease. Assayed on Siemens ADVIA [employer] XPT using chemiluminescent technology.??Values obtained by using different assay methods cannot be used interchangeably. us Provider Outr Resulting Lab CHEMISTRY & BLOOD GA S ORDERABLES Final Result Performing Organization Address City/State/[facility] Co de Phone Number [facility] [address] [place] [address] documented in this encounter Visit Diagnoses Not on filedocumented in this encounter
--- OUTSIDE RECORDS SUMMARY | 2024-09-14 00:32 | XMS_ITS | Referral Summary ---
Author Organization [facility] Address [address] [place] [address] Care Team Providers Care Warping Mill Operator Name Role Phone Unavailable Primary Care Provider Unavailabl e Allergies No known active allergies Medications QUEtiapine (SEROQUEL) 100 mg tablet Take 100 mg by mouth at bedtime. Active FLUoxetine (PROZAC) 20 mg tablet Take 20 mg by mouth daily. Active LORazepam (ATIVAN) 1 mg tablet Take 1 mg by mouth. Pre-procedu re Active Immunizations Name Administration Dates Next Due Tdap Vaccine =>7YO IM 09/07/2013 Social History Tobacco Use Types Packs/Day Years Used Date Smoking Tobacco: Never Assessed Sex and Gender Information Value Date Recorded Sex Assigned at Not on file Legal Sex Male 17:32 EST Gender Identity Not on file Sexual Orientation Not on file Last Filed Vital Signs [...] 27.63 09/05/2013 1523 EST Plan of Treatment Not on file
--- OUTSIDE RECORDS SUMMARY | 2024-09-14 00:32 | XMS_ITS | Clinical Summary ---
Author Organization [facility] Address [address] [place] [address] Care Team Providers Care Hand Fabric Cutter Name Role Phone Unavailable Primary Care Provider [...] Last Done Comments Hepatitis C Screen 1975 Hepatitis B Vaccine (1 of - 19+ 3-dose series) 12/07 COVID-19 Vaccine (2023-) 07/01/2024
--- NOTE | 2024-09-14 07:00 | DI.US_ITS ---
Exam(s) US RENAL EXAM: US RENAL CLINICAL HISTORY: Monitoring hydronephrosis,n13.30. TECHNIQUE: Michaels scale, color and spectral Doppler were used. COMPARISON: CT ABD PELVIS WO CONTRAST from 08/12/2017 US SCROTUM US from 08/31/2017 US US HERNIA from 11/20/2021 US US RENAL from 10/04/2022 US US RENAL from 06/03/2023 NM NM DTPA RENOGRAM W LASIX from 07/06/2023 FINDINGS: Right kidney: 10.2cm Echogenicity: Normal Hydronephrosis: Stable mjub-gh-yhmdsifl hydronephrosis. Cyst or mass: No Nephrolithiasis: 3 millimeter stone lower pole right kidney. Left kidney: 10.3cm Echogenicity: Normal Hydronephrosis: Stable [id number] hydronephrosis. Cyst or mass: No Nephrolithiasis: two 2 millimeter stones mid left kidney. Bladder:Not well evaluated due to suboptimal distension. Prevoid vol:87 cc Postvoid vol:35 cc Prostate volume 18 cc IMPRESSION: Symmetric stable bilateral hydronephrosis. Bilateral nonobstructing renal calculi. Mildly elevated postvoid residual. DATA REPOSITORY:
== END 2024-09-14 00:48 ==
LOC: DI 00:30
PROVIDERS: PCP Nurse Practitioner Family; Visit Provider Nurse Practitioner Gerontology
DX: N13.30 Unspecified hydronephrosis (principal)
CPT/HCPCS: 76770

== ENCOUNTER → 2024-10-02 09:52 | Outpatient (BNVA) | payer MEDICARE, MEDICAID, SELFPAY | PROVIDERS: PCP Nurse Practitioner Family; Visit Provider Nurse Practitioner Gerontology | DX: N13.30 Unspecified hydronephrosis (principal); N20.0 Calculus of kidney | CPT/HCPCS: 99213 ==

== ENCOUNTER → 2025-04-04 15:22 | Outpatient (BNVA) | payer MEDICARE, MEDICAID, SELFPAY | PROVIDERS: PCP Nurse Practitioner Family; Referring Provider Nurse Practitioner Family; Visit Provider Nurse Practitioner Gerontology | DX: N13.30 Unspecified hydronephrosis (principal); N20.0 Calculus of kidney; R39.9 Unspecified symptoms and signs involving the genitourinary system | CPT/HCPCS: 99213; 51798 ==

== ENCOUNTER → 2025-09-23 02:10 | Outpatient (CLI) | payer MEDICARE, MEDICAID, SELFPAY ==
--- NOTE | 2025-09-23 09:30 | DI.US_ITS ---
Exam(s) US RENAL EXAM: US RENAL CLINICAL HISTORY: monitoring hydronephrosis,calculus of kidney,n20.0,n13.30. TECHNIQUE: Michaels scale, color and spectral Doppler were used. COMPARISON: US US RENAL from 09/14/2024 FINDINGS: Renal size in cm: Right: 10.0. Left: 10.6. Echogenicity: Normal. Hydronephrosis: There is persistent mild hydronephrosis on the right kidney which appears stable. There is hydronephrosis on the left kidney which appears slightly more pronounced compared to the prior examination. Cyst or mass: No. Nephrolithiasis: There are echogenic foci seen in each kidney which may represent nonobstructing stones. The largest is 6 mm on the right. Other findings: None. Bladder:There is diffuse thickening of the wall of the urinary bladder. Ureteral jets: Right: Visualized and unremarkable. Left: Not visualized on this examination. Prevoid vol:106 cc Postvoid vol:The patient was unable to void during the examination. Prostate: 14 cc Renal color flow: Symmetric and within normal limits. IMPRESSION: 1. Slight worsening of the dilatation of the left renal pelvis. Stable appearance of the right renal pelvis. 2. Diffuse thickening of the wall of the urinary bladder. This may be due to chronic bladder outlet obstruction, neurogenic bladder. Infection cannot be excluded. Please correlate clinically. DATA REPOSITORY:
== END ==
LOC: DI 02:10
PROVIDERS: PCP Nurse Practitioner Family; Visit Provider Nurse Practitioner Gerontology
DX: N13.30 Unspecified hydronephrosis (principal); N20.0 Calculus of kidney
CPT/HCPCS: 76770

== ENCOUNTER → 2025-10-03 15:20 | Outpatient (BNVA) | payer MEDICARE, MEDICAID, SELFPAY | PROVIDERS: PCP Nurse Practitioner Family; Referring Provider Nurse Practitioner Family; Visit Provider Nurse Practitioner Gerontology | DX: N13.30 Unspecified hydronephrosis (principal); N20.0 Calculus of kidney | CPT/HCPCS: 99213; 51798 ==

== ENCOUNTER 2025-10-17 21:03 | Outpatient (REF) | payer MEDICARE, MEDICAID, SELFPAY ==
[2025-10-17 21:27] LABS: BUN 21 mg/dL (9-23)
== END 2025-10-17 21:04 | disposition home or self-care (01) ==
LOC: LBN 21:03
PROVIDERS: PCP Nurse Practitioner Family; Visit Provider Nurse Practitioner Gerontology
DX: N13.30 Unspecified hydronephrosis (principal)
CPT/HCPCS: 84520; 82565